=== PATIENT | female | born 1960 | race African-American/Black ===

== ENCOUNTER 2020-09-12 19:06 | Emergency (ER) | payer SELFPAY ==
--- NOTE | 2020-09-12 19:28 | ECG_ITS ---
Test Reason : PALPITATIONS Blood Pressure : / mmHG Vent. Rate : 113 BPM Atrial Rate : 113 BPM P-R Int : 132 ms QRS Dur : 090 ms QT Int : 334 ms P-R-T Axes : 047 024 046 degrees QTc Int : 458 ms Sinus tachycardia Possible Left atrial enlargement Possible Anterior infarct , age undetermined Abnormal ECG No previous ECGs available Referred By: Cesar Escalona Electronically Signed By:Chas Garcia
[2020-09-12 20:06] VITALS: BP 156/89; PULSE 78; RESP 18; TEMP 36.8; O2SAT 98; BMI 32.8
== END 2020-09-12 21:30 | disposition left against medical advice (07) ==
PROVIDERS: Emergency Provider Emergency Medicine
DX: R00.2 Palpitations (principal); I10 Essential (primary) hypertension
CPT/HCPCS: 93005; 99282; 99283

== ENCOUNTER 2020-10-24 12:36 | Emergency (ER) | payer SELFPAY ==
[2020-10-24 12:50] VITALS: BP 132/90; BP 89/54; PULSE 108; PULSE 119; RESP 18; TEMP 36.6; O2SAT 94; BMI 29.7
[2020-10-24] MEDS: 0.9 % Sodium Chloride 1,000 ML 999 ML IVCONT (13:26)
[2020-10-24 13:33] LABS: MANUAL DIFF FLAG NO
[2020-10-24 13:37] LABS: Basophils Absolute Auto 0.1 X10*3/uL (0.0-0.2); Basophils Percent Auto 0.7 % (0-2); Eosinophils Absolute Auto 0.1 X10*3/uL (0.0-0.4); Eosinophils Percent Auto 1.2 % (0-4); Hematocrit 33.2 % (37-47); Hemoglobin 10.7 g/dl (12.0-16.0); Imm Gran Abs Auto 0.02 X10*3/uL (0.00-0.03); Imm Gran Pct Auto 0.3 % (0.0-0.4); Lymphocytes Absolute Auto 1.8 X10*3/uL (1.2-4.9); Lymphocytes Percent Auto 24.6 % (20-40); Mean Corpuscular HGB Conc 32.2 g/dl (31.0-35.0); Mean Corpuscular Hemoglobin 30.5 pg (27.0-33.0); Mean Corpuscular Volume 94.6 fL (80-98); Mean Platelet Volume 11.1 fL (9.4-12.3); Monocytes Absolute Auto 0.7 X10*3/uL (0.1-1.2); Monocytes Percent Auto 8.8 % (2-11); Neutrophils Absolute Auto 4.8 X10*3/uL (2.0-8.3); Neutrophils Percent Auto 64.4 % (45-73); Platelet Count 218 X10*3/uL (160-400); Red Blood Count 3.51 X10*6/uL (4.20-5.50); Red Cell Distribution Width 14.1 % (11.0-16.0); White Blood Count 7.5 X10*3/uL (4.8-10.8)
[2020-10-24 13:47] LABS: Prothrombin Time 11.4 SEC (9.9-13.0)
[2020-10-24 14:00] LABS: Alanine Aminotransferase 8 U/L (0-31); Albumin Level 3.8 g/dL (3.5-5.0); Alkaline Phosphatase 102 U/L (39-117); Anion Gap 11 (12-20); Aspartate Amino Transferase 21 U/L (5-31); Bilirubin Total 0.6 mg/dL (0.0-1.0); Blood Urea Nitrogen 14 mg/dL (9-16); Calcium 9.1 mg/dL (8.4-10.2); Carbon Dioxide 23 mmol/L (22-29); Chloride 111 mmol/L (96-108); Creatinine Clr Calc Pharmacy 61.1; Estimated Glomerular Filt Rate 49; Glucose Random 92 mg/dL (60-115); Magnesium 1.9 mg/dL (1.6-2.6); Sodium 141 mmol/L (135-145)
--- NOTE | 2020-10-24 14:05 | ED_ITS ---
HPI - General Adult General Chief complaint: Overdose Stated complaint: muscle cramps in all extremeties Time Seen by Provider: 10/24/20 12:39 Source: patient and EMS Mode of arrival: EMS Limitations: no limitations History of Present Illness HPI narrative: 60-year-old female presenting to the ED via EMS after eating a THC edible then shortly after having severe muscle spasms where she was unable to walk prior to arrival. Therefore she took 16mg of Tizanidine instead of her regular prescribed dose of 4 mg of Tizanidine for her muscle spasm. She reports she is concerned that the THC edible had other drugs and other than THC and once her urine to be tested for all drugs. She reports she ate the entire small rice crispy bar. She reports she is tired at this time otherwise denies any other symptoms complaints or concerns which include any dizziness, headaches, change of vision, nausea/vomiting, chest pain, shortness of breath, cough, abdominal pain, dysuria, hematuria, diarrhea or any other symptoms complaints or concerns at this time Related Data Allergies Allergy/AdvReac Type Severity Reaction Status Date / Time No Known Allergies Allergy Verified 10/24/20 12:40 Review of Systems Review of Systems: Constitutional : Positive fatigue, No Weight loss, No Fever, No Chills, No Night Sweats, No Malaise ENT/Mouth: No ear pain, No sore throat, No Difficulty swallowing Cardiovascular : No Chest Pain, No SOB, No Dyspnea on Exertion, No Orthopnea, NoEdema, No Palpitations Respiratory : No Cough, No Sputum, No Wheezing, No Dyspnea Gastrointestinal : No Nausea, No Vomiting, No abdominal pain, No Diarrhea, No blood streaked emesis, No coffee-ground emesis, No gross hematemesis, No blood streak stool, No gross hematochezia, No Melena Genitourinary : No irregular bleeding, No Dysuria, No Urinary Frequency, No Hematuria,No Urinary Incontinence, No Urgency, No Flank Pain Musculoskeletal : No joint pain, No Myalgias, No Joint Swelling Skin : No Skin Lesions, No rash Neuro : No Weakness, No Numbness, No Paresthesias, No Loss of Consciousness, No Dizziness, No Headache Psych : No Social Issues, Heme/Lymph: No Bruising, No Bleeding,No Lymphadenopathy Endocrine : No Polyuria, No Polydipsia, No Temperature Intolerance Yes all other systems are reviewed and are negative PMFSH Past Medical History Attestation statement: The following information was validated with the patient. Surgical History S/P cervical spinal fusion Social History Social History Advance Directives: No Advance Directives Information Provided: Yes Patient : No Physical Exam Vital Signs: Vital Signs: Last Vital Signs Temp 97.7 F 10/24/20 14:38 Pulse 88 10/24/20 14:38 Resp 17 10/24/20 14:38 BP 138/75 10/24/20 14:38 Pulse Ox 96 10/24/20 14:38 Body Mass Index 29.7 vital signs have been reviewed as normal and appeared to be correct. Blood pressure hypotensive 89/54. Heart rate tachycardic at 108. Respiration rate normal. Temperature normal. Oxygen saturation normal. Appearance: Alert. Oriented X3. No acute distress. Head: Normal external exam. Normocephalic. Atraumatic. Eyes: PERRLA. EOMI. Conjunctiva and sclera normal. Eyelids normal. ENT: EAC normal. TM's Normal. Pharynx normal. Uvula midline. Moist mucous membranes. Neck: Normal inspection. Neck supple. FROM. No adenopathy. Thyroid Normal. No meningeal signs. No neck mass noted. CVS: Normal heart rate and rhythm. Heart sound normal. Pulses normal throughout. No murmurs/rales/gallops. Respiratory: No respiratory distress. Painless inspiration. Breath sounds normal. No wheezes/rales/rhonchi noted. Chest nontender. No accessory muscle usage noted or decreased air movement noted. Abdomen: Soft and nontender. Bowel sounds normal in all 4 quadrants. No distention noted. No organomegaly noted. No visible injury noted. Back: Full range of motion noted. No rashes/lesion/induration/fluctuance or signs of infection noted. Skin: Skin warm and dry. Normal skin color. Normal skin turgor. No rashes/lesions/lacerations noted. Extremities: No lower extremity edema. No calf tenderness noted. Extremities exhibit normal range of motion. Extremities nontender. Neuro: Oriented X 3. No motor deficit. No sensory deficit. Reflexes normal. Normal steady gait. No focal neuro deficits noted. Vascular: + radial pulses/+ 2 distal pedal pulses/+2 dorsalis pedis b/l. Normal cap refill. No cyanosis noted to upper extremity nails and lower extremity toes nails. Course Course Course Narrative: 12:40pm - 60-year-old female presenting to the ED via EMS after eating a THC edible then shortly after having severe muscle spasms where she was unable to walk prior to arrival. Therefore she took 16mg of Tizanidine instead of her regular prescribed dose of 4 mg of Tizanidine for her muscle spasm. She reports she is concerned that the THC edible had other drugs and other than THC and once her urine to be tested for all drugs. She reports she ate the entire small rice crispy bar. She reports she is tired at this time otherwise denies any other symptoms complaints or concerns Plan: Labs, EKG, UA, drugs of abuse screen as requested by patient provide a L of IV fluids then monitor for at least 4 hours until 17:00 Reevaluation(s) Reevaluation #1: - labs return in patient with mild anemia she denies any rectal bleeding and refused rectal exam. All other labs appear to be a within normal limits EKG normal sinus rhythm with ventricular rate of 87 with a normal ID interval normal QRS duration with QT/QTC interval. No acute ischemic change are noted. - therefore at this time patient is medically cleared and she has been monitored for at least 4-5 hours and it is safe to be discharged will DC home with instructions to return if any new or worsening symptoms and if she is going to eat any marijuana edibles to eat a small bite not the whole rice crispy treat. And that she should not take more than her prescribed Tizanidine and to follow- up with her primary care provider and to return if any new or worsening symptoms. Patient understands agrees with this plan. Time: 16:43 Medical Decision Making Medical Records Medical records reviewed: Yes I reviewed the patient's medical records. Lab Data Lab results reviewed: Yes I reviewed the patient's lab results. Result diagrams: 10/24/20 13:24 10/24/20 13:24 Labs: Lab Results 10/24/20 10/24/20 10/24/20 Range/Units 13:24 13:24 13:24 WBC 7.5 (4.8-10.8) X10*3/uL RBC 3.51 L (4.20-5.50) X10*6/uL Hgb 10.7 L (12.0-16.0) g/dl Hct 33.2 L (37-47) % MCV 94.6 (80-98) fL MCH 30.5 (27.0-33.0) pg MCHC 32.2 (31.0-35.0) g/dl RDW 14.1 (11.0-16.0) % Plt Count 218 (160-400) X10*3/uL MPV 11.1 (9.4-12.3) fL Immature Gran % (Auto) 0.3 (0.0-0.4) % Neut % (Auto) 64.4 (45-73) % Lymph % (Auto) 24.6 (20-40) % Traill % (Auto) 8.8 (2-11) % Eos % (Auto) 1.2 (0-4) % Baso % (Auto) 0.7 (0-2) % Lymph # (Auto) 1.8 (1.2-4.9) X10*3/uL Traill # (Auto) 0.7 (0.1-1.2) X10*3/uL Eos # (Auto) 0.1 (0.0-0.4) X10*3/uL Baso # (Auto) 0.1 (0.0-0.2) X10*3/uL Abs Immat Gran (auto) 0.02 (0.00-0.03) X10*3/uL Absolute Neuts (auto) 4.8 (2.0-8.3) X10*3/uL Absolute Nucleated RBC 0.000 (0.0-0.012) X10*3/uL Nucleated RBC % (auto) 0.0 (0.0-0.2) /100WBC Hold Purple Top SEE NOTE PT 11.4 (9.9-13.0) SEC INR 1.0 (0.9-1.1) Sodium (135-145) mmol/L Potassium (3.3-5.1) mmol/L Chloride (96-108) mmol/L Carbon Dioxide (22-29) mmol/L Anion Gap (12-20) BUN (9-16) mg/dL Creatinine (0.5-1.4) mg/dL Estim Creat Clear Calc Estimated GFR Random Glucose (60-115) mg/dL Calcium (8.4-10.2) mg/dL Magnesium (1.6-2.6) mg/dL Total Bilirubin (0.0-1.0) mg/dL AST (5-31) U/L ALT (0-31) U/L Alkaline Phosphatase (39-117) U/L Total Creatine Kinase (26-140) U/L Total Protein (6.5-8.0) g/dL Albumin (3.5-5.0) g/dL 10/24/20 Range/Units 13:24 WBC (4.8-10.8) X10*3/uL RBC (4.20-5.50) X10*6/uL Hgb (12.0-16.0) g/dl Hct (37-47) % MCV (80-98) fL MCH (27.0-33.0) pg MCHC (31.0-35.0) g/dl RDW (11.0-16.0) % Plt Count (160-400) X10*3/uL MPV (9.4-12.3) fL Immature Gran % (Auto) (0.0-0.4) % Neut % (Auto) (45-73) % Lymph % (Auto) (20-40) % Traill % (Auto) (2-11) % Eos % (Auto) (0-4) % Baso % (Auto) (0-2) % Lymph # (Auto) (1.2-4.9) X10*3/uL Traill # (Auto) (0.1-1.2) X10*3/uL Eos # (Auto) (0.0-0.4) X10*3/uL Baso # (Auto) (0.0-0.2) X10*3/uL Abs Immat Gran (auto) (0.00-0.03) X10*3/uL Absolute Neuts (auto) (2.0-8.3) X10*3/uL Absolute Nucleated RBC (0.0-0.012) X10*3/uL Nucleated RBC % (auto) (0.0-0.2) /100WBC Hold Purple Top PT (9.9-13.0) SEC INR (0.9-1.1) Sodium 141 (135-145) mmol/L Potassium 4.0 (3.3-5.1) mmol/L Chloride 111 H (96-108) mmol/L Carbon Dioxide 23 (22-29) mmol/L Anion Gap 11 L (12-20) BUN 14 (9-16) mg/dL Creatinine 1.13 (0.5-1.4) mg/dL Estim Creat Clear Calc 61.1 Estimated GFR 49 Random Glucose 92 (60-115) mg/dL Calcium 9.1 (8.4-10.2) mg/dL Magnesium 1.9 (1.6-2.6) mg/dL Total Bilirubin 0.6 (0.0-1.0) mg/dL AST 21 (5-31) U/L ALT 8 (0-31) U/L Alkaline Phosphatase 102 (39-117) U/L Total Creatine Kinase 96 (26-140) U/L Total Protein 7.0 (6.5-8.0) g/dL Albumin 3.8 (3.5-5.0) g/dL ECG Data Attestation: I personally reviewed and interpreted this ECG as follows: Interpretation: EKG normal sinus rhythm with ventricular rate of 87 with a normal ID interval normal QRS duration with QT/QTC interval. No acute ischemic change are noted. Critical Care Time Critical Care Time Critical Care Time: Yes Total Critical Care Time: 60 Attestation: I personally attest to this time spent taking care of the patient Discharge Plan Discharge Clinical Impression: Use of cannabinoid edibles Patient Disposition: Home, Self-Care Instructions: Cannabis Abuse (ED) Additional Instructions: Next time you eat marijuana edibles please to not eat the entire edible eat a bite only and you should not take more than your usually prescribed muscle relaxers. Return if any new or worsening symptoms. Follow up with her primary care provider. Referrals: Physician,Unknown [Primary Care Provider] - 2 days (your pcp) Print Language: Georgian
--- NOTE | 2020-10-24 14:08 | ECG_ITS ---
Test Reason : OVERDOSE Blood Pressure : / mmHG Vent. Rate : 087 BPM Atrial Rate : 087 BPM P-R Int : 162 ms QRS Dur : 090 ms QT Int : 390 ms P-R-T Axes : 053 027 025 degrees QTc Int : 469 ms Normal sinus rhythm Cannot rule out Anterior infarct (cited on or before 12-SEP-2020) Abnormal ECG When compared with ECG of 12-SEP-2020 19:28, No significant change was found Referred By: Alma Huitron Electronically Signed By:Chas Garcia
[2020-10-24 14:38] VITALS: BP 138/75; PULSE 88; RESP 17; TEMP 36.5; O2SAT 96
== END 2020-10-24 18:00 | disposition home or self-care (01) ==
PROVIDERS: Physician Assistant Medical; Emergency Provider Emergency Medicine
DX: F12.90 Cannabis use, unspecified, uncomplicated (principal); D64.9 Anemia, unspecified
CPT/HCPCS: 36415; 80053; 82550; 83735; 85025; 85610; 93005; 96360; 99284